=== PATIENT | male | born 1980 | race African-American/Black ===

== ENCOUNTER 2017-04-09 08:03 | Emergency (ER) | payer MEDICAID ==
[2010-07-12 09:24] VITALS: BMI 40.4
== END 2017-04-09 10:17 | disposition home or self-care (01) ==
LOC: D.ER 08:03
DX: S30.0XXA Contusion of lower back and pelvis, initial encounter (principal); S60.221A Contusion of right hand, initial encounter; W11.XXXA Fall on and from ladder, initial encounter; Y93.89 Activity, other specified; Y92.029 Unspecified place in mobile home as the place of occurrence of the external cause; S43.401A Unspecified sprain of right shoulder joint, initial encounter; S43.402A Unspecified sprain of left shoulder joint, initial encounter

== ENCOUNTER 2018-07-11 17:23 | Emergency (ER) | payer MEDICAID ==
[~2018-07-11] VITALS: Ht 195.6 cm; Wt 140.9 kg
[2018-07-11 18:05] VITALS: Ht 195.6 cm; Wt 140.9 kg
[2018-07-11] MEDS ORDERED: PRINIVIL10 MG PO (18:09)
[2018-07-11] MEDS ORDERED: GLUCOPHAGE500 MG PO (18:09)
[2018-07-11] MEDS ORDERED: ROBAXIN500 MG PO (18:10)
[2018-07-11] MEDS ORDERED: NORCO 7.5/325 T1 TA1 PO (18:10)
[2018-07-11 18:42] LABS: BASOPHILS 0.4 % (0-2); HEMATOCRIT 40.6 % (42.0-54.0); IMMATURE GRANULOCYTES 0.3 % (0-5); LYMPHOCYTES 26.3 % (15-50); MCH 29.5 pg (26.0-34.0); MCHC 34.5 g/dL (31.0-37.0); MCV 85.5 fL (80.0-100.0); MEAN PLATELET VOLUME 10.3 fL (7.4-10.4); MONOCYTES 9.9 % (2-11); NEUTROPHILS 61.1 % (40-80); PLATELET COUNT 257 10x3/uL (130-400); RBC 4.75 10x6/uL (4.20-6.10); RDW 12.6 % (11.5-14.5); WBC 9.6 10x3/uL (4.8-10.8)
[2018-07-11 19:02] LABS: ALBUMIN 3.7 g/dL (3.4-5.0); ALKALINE PHOSPHATASE 82 U/L (46-116); ALT (SGPT) 17 U/L (10-68); BILIRUBIN - TOTAL 0.61 mg/dL (0.2-1.3); CALCIUM 9.2 mg/dL (8.5-10.1); CARBON DIOXIDE 23.4 mmol/L (21.0-32.0); CHLORIDE - SERUM 103 mmol/L (98-107); CREATININE - SERUM 1.1 mg/dL (0.6-1.3); POTASSIUM - SERUM 3.4 mmol/L (3.5-5.1); PROTEIN - SERUM 7.5 g/dL (6.4-8.2); SODIUM 139 mmol/L (136-145); UREA NITROGEN 9 mg/dL (7-18); eGFR NON AFRICAN AMERICAN 79 mL/min (90-120)
[2018-07-11 19:08] LABS: CKMB 0.9 U/L (0.0-3.6); CREATINE KINASE 179 UL (21-232)
[2018-07-11 19:19] LABS: CALC OSMOLALITY 283 mosm/kg (275-300); GLUCOSE 233 mg/dL (74-106); TROPONIN-I < 0.017 ng/mL (0.000-0.060)
[2018-07-11] MEDS ORDERED: TORADOL10 MG PO (20:45)
[2018-07-11 21:27] VITALS: BP 138/75
== END 2018-07-11 21:10 | disposition home or self-care (01) ==
LOC: D.ER 17:23
PROVIDERS: Family Medicine
DX: R07.89 Other chest pain (principal); E11.9 Type 2 diabetes mellitus without complications; R14.2 Eructation; I10 Essential (primary) hypertension; F17.200 Nicotine dependence, unspecified, uncomplicated

== ENCOUNTER 2018-10-21 12:09 | Emergency (ER) | payer MEDICAID ==
[~2018-10-21] VITALS: Ht 195.6 cm; Wt 134.1 kg
[~2018-10-21 12:09] MED LIST: GLUCOPHAGE500 MG PO; NORCO 7.5/325 T1 TA1 PO; PRINIVIL10 MG PO; ROBAXIN500 MG PO; TORADOL10 MG PO
[2018-10-21 12:26] VITALS: Ht 195.6 cm; Wt 134.1 kg
[2018-10-21] MEDS ORDERED: TORADOL10 MG PO (13:29)
[2018-10-21 14:19] VITALS: BP 139/93
[2018-10-27 16:08] LABS: AEROBE ID Final report (())
== END 2018-10-21 14:15 | disposition home or self-care (01) ==
LOC: D.ER 12:09
PROVIDERS: Family Medicine
DX: J02.0 Streptococcal pharyngitis (principal)

== ENCOUNTER 2018-12-17 18:10 | Emergency (ER) | payer MEDICAID ==
[~2018-12-17] VITALS: Ht 195.6 cm; Wt 145.5 kg
[2018-12-17 18:20] VITALS: Ht 195.6 cm; Wt 145.5 kg
[2018-12-17 20:21] VITALS: BP 128/74
== END 2018-12-17 20:21 | disposition home or self-care (01) ==
LOC: D.ER 18:10
DX: S63.502A Unspecified sprain of left wrist, initial encounter (principal); W20.8XXA Other cause of strike by thrown, projected or falling object, initial encounter; Y93.89 Activity, other specified; Y92.89 Other specified places as the place of occurrence of the external cause; M79.642 Pain in left hand; M25.532 Pain in left wrist